=== PATIENT | male | born 1965 | race Two or more races ===

== ENCOUNTER 2017-08-17 09:47 | Day surgery (SDC) | payer BC ==
[~2017-08-17 09:47] MED LIST: LACTATED RINGERS 1,000 ML IV SCH; LIDOCAINE 1% 20 ML VIAL (10MG/ML) FOR IV START INTRADERMA PRN; MIDAZOLAM 2 MG/2 ML VIAL IV PRN
[2017-08-17 10:10] VITALS: RESP 16; TEMP 98.3
[2017-08-17] MEDS ORDERED: PROPOFOL 10 MG/ML 20 ML VIAL IV ONE (10:23)
--- NOTE | 2017-08-17 10:33 | P.GSHP ---
History of Present Illness H&P Date: 08/17/17 Chief Complaint: GI bleed The subcu 51-year-old male presents today for initial screening colonoscopy. Patient's had issues with rectal bleeding. He describes significant bleeding after bowel movement. He seen blood on toilet paper. Past Medical History Past Medical History: No Reported History Additional Past Medical History / Comment(s): CURRENT: RECTAL BLEEDING, HX ALSO. History of Any Multi-Drug Resistant Organisms: None Reported Past Surgical History: No Surgical Hx Reported Past Anesthesia/Blood Transfusion Reactions: No Reported Reaction Additional Past Anesthesia/Blood Transfusion Reaction / Comment(s): NEVER HAD GENERAL ANESTHESIA. Past Psychological History: No Psychological Hx Reported Smoking Status: Never smoker Past Alcohol Use History: Occasional Past Drug Use History: None Reported Medications and Allergies Home Medications Medication Instructions Recorded Confirmed Type Multivitamins, Thera [Multivitamin 1 tab PO DAILY 08/12/17 08/17/17 History (formulary)] Allergies Allergy/AdvReac Type Severity Reaction Status Date / Time No Known Allergies Allergy Verified 08/17/17 10:07 Surgical - Exam Vital Signs Temp Pulse Resp BP Pulse Ox 98.3 F 76 16 138/93 98 08/17/17 10:08 08/17/17 10:08 08/17/17 10:08 08/17/17 10:08 08/17/17 10:08 - General well developed, no distress - Eyes PERRL - ENT normal pinna - Neck no masses - Respiratory normal expansion - Cardiovascular Rhythm: regular - Abdomen Abdomen: soft, non tender Assessment and Plan Assessment: GI bleed. We'll perform colonoscopy.
--- NOTE | 2017-08-17 10:45 | P.OP ---
Date of Procedure: 08/17/17 Preoperative Diagnosis: GI bleed Postoperative Diagnosis: Internal and external hemorrhoids Procedure(s) Performed: Colonoscopy Anesthesia: MAC Surgeon: Jose Longoria Pathology: none sent Condition: stable Disposition: PACU Description of Procedure: The patient's placed on the endoscopy table in the lateral position. He received IV sedation. Digital rectal exam was performed which revealed internal and external hemorrhoids. The prostate was symmetric without nodules. The flexible colonoscope was then placed patient anus and passed throughout the entire colon. The ileocecal valve was visually is. The cecum, ascending and transverse colon appeared normal. The descending; appeared normal. The scope was then brought back into the rectum and this appeared normal. The scope was then retroflexed and there were significant internal and external hemorrhoids. There is no sign of any active bleeding. The scope was withdrawn for patient.
[2017-08-17 11:13] VITALS: BP 122/72; PULSE 75
--- NOTE | 2017-08-19 15:14 | CDI ---
Outpatient Documentation Clarification Form Date: 08/19/17 CDS/Congressional Representative Name: Varsha Alvarez Phone: If any questions, call Marcia Flores Psychiatric Social Worker at [phone] Patient Name: Jero Packer Admit Date: 08/17/17 Discharge Date: 08/17/17 ATTENTION: The [facility] Coding Staff appreciate your assistance in clarifying documentation. Please respond to the clarification below the line at the bottom and electronically sign. The [facility] Coding staff will review the response and follow-up if needed. Please note: Queries are made part of the Legal Health Record. If you have any questions, please contact the Psychiatric Social Worker. Dear Dr. Longoria What is the cause of the GI bleeding? Our coding resources state that when GI bleeding is documented along with internal and/or external hemorrhoids, the physician must be queried to determine whether the rectal bleeding is secondary to the hemorrhoids, or incidental. Thank you for your kind consideration. MTDD
== END 2017-08-17 10:40 | disposition home or self-care (01) ==
LOC: ORWHC2ENDO 09:47
PROVIDERS: ATTEND Surgery
DX: K92.2 Gastrointestinal hemorrhage, unspecified (principal); K64.8 Other hemorrhoids; K64.4 Residual hemorrhoidal skin tags
CPT/HCPCS: 45378; J2704

== ENCOUNTER → 2023-03-25 | Outpatient (CLI) | payer BC ==
--- NOTE | 2023-04-03 14:53 | MR ---
EXAMINATION TYPE: MR lumbar spine wo con DATE OF EXAM: 03/25/2023 COMPARISON: NONE HISTORY: 57-year-old male M4.30, sciatica, left lower extremity radiculopathy . TECHNIQUE: Multiplanar, multisequence images of the lumbar spine were obtained without IV contrast. FINDINGS: Vertebral body heights are preserved. Alignment is maintained. No suspicious bone marrow replacement. A few small benign fatty matrix hemangiomas are present. Conus medullaris is normal. There is an underlying congenital spinal canal stenosis with AP canal dimension of 1 cm. Superimposed mild degenerative disc disease with mild disc bulging and mild disc desiccation especial ly lower lumbar spine. Facet arthropathy mid to lower lumbar spine. Small synovial cysts of the facet joints measuring up to 7 mm on both sides projecting posteriorly at L4-L5. At L4-L5, the congenital spinal canal stenosis is accentuated to a severe canal narrowing due to supe rimposed disc bulge, ligamentum flavum thickening, and facet arthropathy. Cauda equina nerve roots ju st below the severe stenosis are redundant. At L5-S1, there is a superimposed left paracentral disc extrusion which impinges the traversing left S1 nerve root. Mild neuroforaminal stenoses throughout at multiple levels. More moderate on both sides at L4-L5. No prevertebral or paravertebral soft tissue abnormality seen. IMPRESSION: 1. Congenital spinal canal stenosis with superimposed mild degenerative disc disease and hypertrophic facet arthropathy especially mid to lower lumbar spine. 2. Overall changes result in a severe focal spinal canal stenosis at L4-L5. Moderate bilateral neural foraminal stenosis here. 3. Additionally, there is a focal left paracentral disc herniation at L5-S1 which impinges the miguel sing left S1 nerve. 4. Other variable mild neuroforaminal stenoses throughout.
== END | disposition home or self-care (01) ==
LOC: RADMRIMAIN 10:34
PROVIDERS: ATTEND Family Medicine
DX: M48.061 Spinal stenosis, lumbar region without neurogenic claudication (principal); M47.816 Spondylosis without myelopathy or radiculopathy, lumbar region; M99.73 Connective tissue and disc stenosis of intervertebral foramina of lumbar region; M51.17 Intervertebral disc disorders with radiculopathy, lumbosacral region
CPT/HCPCS: 72148

== ENCOUNTER → 2023-04-21 | Outpatient (CLI) | payer BC ==
[2023-04-21 13:29] VITALS: BP 134/90; PULSE 98; RESP 15; TEMP 98.4
--- NOTE | 2023-04-21 13:43 | P.PAINPG ---
Objective - Vital Signs Vital signs: Intake & Output 04/20/23 04/21/23 04/21/23 18:59 06:59 18:59 Weight 97.522 kg PQRS Measure Charge Sheet Comment: HISTORY OF PRESENT ILLNESS: A 57 yr old male as a referral from Dr Mirna Hayden presents today w severe and chronic LBP since Nov 2022 secondary to DDD, spondylosis and facet arthropathy without myelopathy for evaluation. Pt states pain level is provoked at 3/10 in intensity, constant, localized in the lumbar spine, predominantly axial, throbbing in character w occasional shooting pain towards the L hip. Pain is provoked by sitting in an upright position for periods > 30 min. Pain is alleviated by PT x 6 wks which ended in Mar 2023, chiropractic treatments semi monthly which started Apr 2023, heat, medications (Advil), heating pad use, repositioning and rest. Oswestry axial pain score at 12. PMH: OA PSH: Colonoscopy w Hemorrhoidectomy (2017) SH: Never smoker, Occasional ETOH use, No illicit drug use FH: Non contributory All: See list Meds: See list REVIEW OF ORGAN SYSTEMS: CONSTITUTIONAL: No fevers or chills. No recent weight loss. NEUROLOGICAL: + numbness and tingling along the distal extremities. No seizure disorders or headaches. MUSCULOSKELETAL: + pain PSYCHIATRIC: Denies current depression or suicidal thoughts. Physical Examinations : Constitutional : Cooperative , not in acute distress . Neurologic : Cranial nerve II to XII intact. No focal neurological deficits. Psychiatric : alert & oriented x 3. Matching mood & appropriate affect. Judgment & insight intact. Musculoskeletal : Cervical Spine Motor strength in the deltoid and biceps: Normal right side. Normal Left side Motor strength biceps and the wrist extensors: Normal right side . Normal left side Motor strength in the triceps muscle: Normal right side. Normal left side Deep tendon reflexes: Normal at the biceps. Normal at Brachioradialis. Normal at triceps Vertebral body tenderness to deep palpation over Cervical facet loading test: positive bilaterally Spurling test: positive bilaterally Neck distraction test: positive bilaterally Truman sign: positive bilaterally Lumbar spine Motor strength lower extremities ,thigh and legs 5/5 Right side , 5/5 Left side Deep tendon reflexes : Normal Knee Jerk. Normal Ankle Jerk Vertebral body tenderness over L5 Dutta Test positive Lumbar facet Loading Test: positive Right / positive Left Range of motion of the lumbar spine Flexion 30 degrees, extension 10 degrees Straight Leg Raise test: Left/ Right positive at <35 degrees Mikey test: positive right / positive left. Severe tenderness over the Sacroiliac joint on the Right / Left sides Gaenslen test: positive bilaterally Seated flexion test: positive bilaterally. Sacral spine : Severe tenderness over the Sacroiliac joint: right side / left side Range of motion: Flexion of the lumbar spine <60 degrees Range of motion: Extension of the lumbar spine <20 degrees Gaenslen's Test positive Mikey test: positive right side / left side Thigh Thrust Test Sacral Thrust Test Imaging: MRI noncontrast of the lumbar spine from 03/25/23 reviewed Assessment/ Plan : L5 L disc herniation Will manage residual pain and may call clinic when pain is provoked to severe levels. All questions answered. I have spent greater than 30 minutes on patient care today. Dr Gutiérrez was available by phone for the evaluation of this patient. The time was used to review the medical records including relevant urine studies and Prescription history (MAPs), review of the available imaging, evaluation and examination of the patient, coordination of care with the medical staff and if applicable referring physicians, as well as creation of the medical record PQRS Narrative: Smoking Status Never smoker Home Medications: Ambulatory Orders Multivitamins, Thera [Multivitamin (formulary)] 1 tab PO DAILY 08/12/17 Controlled Substance Measures - Controlled Substance Measures Is patient prescribed a controlled substance at discharge?: No
== END ==
LOC: PNWHC3 13:04
PROVIDERS: ATTEND Specialist
DX: M48.061 Spinal stenosis, lumbar region without neurogenic claudication (principal); G97.1 Other reaction to spinal and lumbar puncture; M51.26 Other intervertebral disc displacement, lumbar region; M19.90 Unspecified osteoarthritis, unspecified site
CPT/HCPCS: 99211

== ENCOUNTER → 2024-08-15 | Outpatient (CLI) | payer BC ==
--- NOTE | 2024-08-16 17:51 | NM ---
EXAMINATION TYPE: NM thyroid image w uptake DATE OF EXAM: 08/16/2024 COMPARISON: NONE CLINICAL INDICATION: Male, 58 years old with history of E04.1 THYROID NODULE; TECHNIQUE: Thyroid iodine uptake is calculated and images performed after the oral administration of 307 uCi 1-123 Capsule. FINDINGS: There is a photopenic defect within the mid lateral left lobe thyroid. Correlation with ult rasound is recommended. The 4 hour iodine uptake is calculated at 11.0% (normal range 8-14%). The 24-hour iodine uptake is calculated at 22.8% (normal range 15-35%). IMPRESSION: 1. Photopenic defect lateral left lobe thyroid. Additional workup with thyroid ultrasound is recommen ded. 2. Normal uptake. [facility], , 08/16/2024 5:49 PM
== END | disposition home or self-care (01) ==
LOC: RADNMMAIN 09:36
PROVIDERS: ATTEND Family Medicine
DX: E04.1 Nontoxic single thyroid nodule (principal)
CPT/HCPCS: 78014; A9516